=== PATIENT | male | born 1965 | race Caucasian/White ===

== ENCOUNTER 2017-02-26 10:00 | Emergency (ER) | payer MEDICAID ==
[~2017-02-26] VITALS: Ht 165.1 cm; Wt 89.0 kg
[~2017-02-26 10:00] MED LIST: ALBU8.5H5 INH; AUG875 PO; BECL8.7A INH; CROM26SP NASAL; FLUT9.9S NASAL; NASO17 NASAL; PRED20TA PO
[2017-02-26 10:11] VITALS: Ht 165.1 cm; Wt 89.0 kg
--- NOTE | 2017-02-26 11:33 | ERD ---
ER Documentation Chief Complaint Date/Time DATE: 02/26/17 TIME: 11:31 Chief Complaint cough, nasal congestion x 5 days HPI This a 52-year-old male who presents the emergency department today complaining of some nasal congestion for the past week. States he is also had some shortness of breath and difficulty breathing when he takes a deep breath. Denies any cough, fevers or chills per ROS All systems reviewed and are negative except as per history of present illness. Medications Home Meds Active Scripts Cetirizine Hcl* (Zyrtec*) 10 Mg Capsule, 10 MG PO DAILY, #14 TAB.CHEW Prov:ALEX BOX PA-C 02/26/17 Fluticasone Propionate (Flonase Allergy Relief) 9.9 Ml [place].susp, 2 SPRAY NASAL DAILY, #1 BOTTLE TO EACH NOSTRIL Prov:ALEX BOX PA-C 02/26/17 Amoxicillin/Potassium Clav (Amox-Clav 875-125 mg Tablet) 875-125 mg Tab, 1 TAB PO BID for 7 Days, #14 TAB Prov:ALEX BOX PA-C 02/26/17 Fluticasone Propionate (Flonase Allergy Relief) 9.9 Ml [place].susp, 1 SPRAY NASAL BID, #1 BOTTLE TO EACH NOSTRIL Prov:VICKIE LEE PA-C 05/30/16 Amoxicillin-Clavulanate K* (Augmentin*) 875 Mg Tab, 875 MG PO BID, #20 TAB Prov:TJ SHI PA-C 10/27/15 Prednisone* (Prednisone*) 20 Mg Tab, 40 MG PO DAILY, #8 TAB Prov:TJ SHI PA-C 10/27/15 Mometasone Furoate* (Nasonex*) 50 Mcg/[place] - 17 Gm [place].pump, 1 SPRAY NASAL DAILY, #1 BOTTLE TO EACH NOSTRIL Prov:TJ SHI PA-C 10/27/15 Cromolyn Sodium* (Nasal Allergy [place]*) 40 Mg/Ml [place].pump, 1 SPRAY NASAL TID, #1 SPR EACH NOSTRIL Prov:ANDRA NOONAN MD 06/02/15 Beclomethasone Dip* (Qvar 40*) 7.3 Gm Inha, 2 PUFF INH BID, #1 INH Prov:FARZANEH LINK 04/30/15 Albuterol Sulfate* (Albuterol Sulfate* HFA) 8.5 Gm Hfa.aer.ad, 2 PUFF INH Q4 Y for SHORTNESS OF BREATH, #1 EA Prov:FARZANEH LINK 04/30/15 Allergies Allergies: Coded Allergies: No Known Allergies (Verified Allergy, Mild, 06/02/15) PMhx/Soc History of Surgery: No Anesthesia Reaction: No Hx Neurological Disorder: No Hx Respiratory Disorders: No Hx Cardiac Disorders: No Hx Psychiatric Problems: No Hx Miscellaneous Medical Probl: No Hx Alcohol Use: No Hx Substance Use: No Hx Tobacco Use: No Physical Exam Vitals Vital Signs Date Time Temp Pulse Resp B/P Pulse Ox O2 Delivery O2 Flow Rate FiO2 02/26/17 10:11 98.0 75 18 138/75 99 Physical Exam Const: No acute distress Head: Atraumatic Eyes: Normal Conjunctiva ENT: Ears TMs normal. Nose no drainage. Throat no erythema no exudate Neck: Full range of motion..~ No meningismus. Resp: Clear to auscultation bilaterally. No absent breath sounds. No wheezing. Cardio: Regular rate and rhythm, no murmurs Skin: No petechiae or rashes Neur: Awake and alert Psych: Normal Mood and Affect Results 24 hrs DIAGNOSTIC IMAGING REPORT Patient: MAXWELL TURPIN : 1965 Age: 52 Sex: M MR #: [id number] DOS: 02/26/17 0000 Ordering MD: ALEX BOX PA-C Location: E Room/Bed: PROCEDURE: Chest x-ray CLINICAL INDICATION: Shortness of breath TECHNIQUE: Chest single view COMPARISON: 06/02/2015 FINDINGS: The heart is normal in size. The pulmonary vessels are normal in caliber. The lungs are clear. The costophrenic angles are sharp. The visualized bony thorax is unremarkable. IMPRESSION: No acute cardiopulmonary disease. RPTAT: HH .Rajinder Bonner MD, MD Date Time Electronically viewed and signed by .Rajinder Bonner MD, MD on 02/26/2017 12:01 .W/ CC: ALEX BOX PA-C Procedures/MDM Is a 52-year-old male who presents the emergency department today complaining of nasal congestion for the past week. He is also reporting shortness of breath and some difficulty breathing and pain with inspiration. Patient has been seen in the past for nasal congestion. Patient is afebrile and otherwise well-appearing however given patient's age I did obtain an EKG and chest x-ray. EKG read and interpreted by Dr. Noonan rate [address] elevation. No QT prolongation. Normal sinus rhythm with nonspecific T-wave abnormality. Low suspicion for acute NE, PE, pericarditis Chest x-ray is negative. Lungs are clear. Heart is normal in size. Low suspicion for pneumonia, PE, abscess, pleural effusion, pneumothorax. Patient is afebrile and otherwise well-appearing. He is not tachycardic. His oxygen saturation is 99%. Patient symptoms at this time most consistent with sinus congestion versus sinusitis and shortness of breath. Patient will be given a prescription for Augmentin, Flonase and Zyrtec At this time the patient is stable for discharge and outpatient management. Patient should follow up with their PCP in the next 1-2 days. They may return to the emergency department sooner for any persistent or worsening of symptoms. Patient understood and agreed with the plan. Departure Diagnosis: Primary Impression: Sinus congestion Condition: Fair ALEX BOX PA-C February 26, 2017 11:33
--- NOTE | 2017-02-26 12:01 | RADRPT ---
PROCEDURE: Chest x-ray CLINICAL INDICATION: Shortness of breath TECHNIQUE: Chest single view COMPARISON: 06/02/2015 FINDINGS: The heart is normal in size. The pulmonary vessels are normal in caliber. The lungs are clear. Th e costophrenic angles are sharp. The visualized bony thorax is unremarkable. IMPRESSION: No acute cardiopulmonary disease. RPTAT: HH .Rajinder Bonner MD, Date Time Electronically viewed and signed by .Rajinder Bonner MD, on 02/26/2017 12:01 .W/
[2017-02-26] MEDS ORDERED: AMOX1TAB10 PO (12:09)
[2017-02-26] MEDS ORDERED: FLUT9.9S NASAL (12:09)
[2017-02-26] MEDS ORDERED: CETI10CA PO (12:10)
== END 2017-02-26 12:49 | disposition home or self-care (01) ==
LOC: FTE 10:00
DX: J34.89 Other specified disorders of nose and nasal sinuses (principal); R06.02 Shortness of breath
CPT/HCPCS: 71010; 93005; Z7502

== ENCOUNTER 2017-04-23 09:31 | Emergency (ER) | payer MEDICAID ==
[~2017-04-23] VITALS: Ht 172.7 cm; Wt 89.5 kg
[~2017-04-23 09:31] MED LIST changes: +AMOX1TAB10 PO; +CETI10CA PO
[2017-04-23 09:34] VITALS: Ht 172.7 cm; Wt 89.5 kg
[2017-04-23] MEDS ORDERED: ACET500C5 PO (10:11)
[2017-04-23] MEDS ORDERED: FLUT9.9S NASAL (10:11)
[2017-04-23] MEDS ORDERED: CETI10CA PO (10:11)
--- NOTE | 2017-04-23 10:51 | RADRPT ---
PROCEDURE: XR Chest. CLINICAL INDICATION: chest pain TECHNIQUE: Single frontal view of the chest was obtained COMPARISON: 02/26/2017 FINDINGS: The heart and mediastinum are within normal limits. The lungs are clear. There is no pleural effusion or pneumothorax. RPTAT: AA IMPRESSION: No acute disease. .Juan Carlos Waggoner MD, MD Date Time Electronically viewed and signed by .Juan Carlos Waggoner MD, on 04/23/2017 10:51 .S/
--- NOTE | 2017-04-23 11:08 | ERD ---
ER Documentation Chief Complaint Date/Time DATE: 04/23/17 TIME: 11:04 Chief Complaint nasal congestion x 8 days HPI This is a 52-year-old male presenting to the emergency department complaining of nasal congestion for the past 8 days. Patient states that he has runny nose. He admits to having a sore throat. Patient admits to having chest discomfort rating it 3 out of 10 only when he takes a deep breath and since he is unable to breathe from his nose. He denies any history of heart disease or relevant medical problems. Patient denies fevers. He states that he has been using Afrin and the nasal congestion has been getting worse ROS All systems reviewed and are negative except as per history of present illness. Medications Home Meds Active Scripts Acetaminophen* (Tylophen*) 500 Mg Capsule, 1 CAP PO Q4 Y for PAIN AND OR ELEVATED TEMP, #20 CAP Prov:MICHELLE ROBERSON PA-C 04/23/17 Cetirizine Hcl* (Zyrtec*) 10 Mg Capsule, 10 MG PO DAILY, #30 TAB.CHEW Prov:MICHELLE ROBERSON PA-C 04/23/17 Fluticasone Propionate (Flonase Allergy Relief) 9.9 Ml [place].susp, 1 SPRAY NASAL BID for 28 Days, #1 BOTTLE TO EACH NOSTRIL Prov:MICHELLE ROBERSON PA-C 04/23/17 Cetirizine Hcl* (Zyrtec*) 10 Mg Capsule, 10 MG PO DAILY, #14 TAB.CHEW Prov:ALEX BOX PA-C 02/26/17 Fluticasone Propionate (Flonase Allergy Relief) 9.9 Ml [place].susp, 2 SPRAY NASAL DAILY, #1 BOTTLE TO EACH NOSTRIL Prov:ALEX BOX PA-C 02/26/17 Amoxicillin/Potassium Clav (Amox-Clav 875-125 mg Tablet) 875-125 mg Tab, 1 TAB PO BID for 7 Days, #14 TAB Prov:ALEX BOX PA-C 02/26/17 Fluticasone Propionate (Flonase Allergy Relief) 9.9 Ml [place].susp, 1 SPRAY NASAL BID, #1 BOTTLE TO EACH NOSTRIL Prov:VICKIE LEE PA-C 05/30/16 Amoxicillin-Clavulanate K* (Augmentin*) 875 Mg Tab, 875 MG PO BID, #20 TAB Prov:TJ SHI PA-C 10/27/15 Prednisone* (Prednisone*) 20 Mg Tab, 40 MG PO DAILY, #8 TAB Prov:TJ SHI PA-C 10/27/15 Mometasone Furoate* (Nasonex*) 50 Mcg/[place] - 17 Gm [place].pump, 1 SPRAY NASAL DAILY, #1 BOTTLE TO EACH NOSTRIL Prov:TJ SHI PA-C 10/27/15 Cromolyn Sodium* (Nasal Allergy [place]*) 40 Mg/Ml [place].pump, 1 SPRAY NASAL TID, #1 SPR EACH NOSTRIL Prov:ANDRA NOONAN MD 06/02/15 Beclomethasone Dip* (Qvar 40*) 7.3 Gm Inha, 2 PUFF INH BID, #1 INH Prov:FARZANEH LINK 04/30/15 Albuterol Sulfate* (Albuterol Sulfate* HFA) 8.5 Gm Hfa.aer.ad, 2 PUFF INH Q4 Y for SHORTNESS OF BREATH, #1 EA Prov:FARZANEH LINK 04/30/15 Allergies Allergies: Coded Allergies: No Known Allergies (Verified Allergy, Mild, 06/02/15) PMhx/Soc History of Surgery: No Anesthesia Reaction: No Hx Neurological Disorder: No Hx Respiratory Disorders: No Hx Cardiac Disorders: No Hx Psychiatric Problems: No Hx Miscellaneous Medical Probl: No Hx Alcohol Use: No Hx Substance Use: No Hx Tobacco Use: No Physical Exam Vitals Vital Signs Date Time Temp Pulse Resp B/P Pulse Ox O2 Delivery O2 Flow Rate FiO2 04/23/17 09:34 97.4 80 18 137/67 98 Physical Exam GENERAL: well-developed/well-nourished, in no apparent distress, non-toxic appearing HEAD: NC/AT, no swelling noted in frontal or maxillary areas EARS: bilateral tympanic membrane is intact without erythema or effusion NARES: rhinorrhea and congested THROAT: oropharynx nonerythematous without exudates, no tonsil enlargement, post nasal drip EYES: Conjunctiva normal NECK: Supple, no lymphadenopathy PULM: CTA bilaterally, no rales, rhonchi, or wheezing heard CV: Normal S1S2, RRR, good capillary refill GI: Soft, non-distended, normal bowel sounds, non-tender BACK: No midline tenderness, no masses EXT No clubbing, cyanosis, or edema NEURO: Alert and Orientated SKIN: Intact, normal turgor PSYCH: Normal mood and mentation Procedures/MDM This is a 52-year-old male presenting to the emergency department complaining of nasal congestion, allergies and chest pain for the past week. Patient describes the chest pain as mild when he takes a deep breath and since he is having difficulty breathing from his nose. I have a low suspicion for ACS, pulmonary embolism, pneumonia or other acute cardiopulmonary conditions. EKG was done in the ED did not show any evidence of STEMI. Chest x-ray did not show any evidence of infiltrates, effusion or edema. Patient has been using Afrin for this past week and his nasal congestion has been getting worse, I have discussed with him at that he likely has rebound nasal rhinitis, I discussed with him to discontinue Afrin. Patient is stable to be discharged home with a prescription for Flonase and Zyrtec. I discussed with him to follow -up with his primary care physician for further evaluation management. Discussed return the ER for any worsening signs or symptoms. Patient stable to be discharged home. He understands and agrees with this plan. I have consulted my supervising physician who also agreed that patient stable to be discharged Chest X-ray 1V Interpreted by me: Soft Tissue: No acute abnormalities Bones: No acute abnormalities Mediastinum/Cardiac Silhouette/Lungs: [No acute abnormalities] EKG: read and signed off by myself and Dr. Noonan Rate/Rhythm: [Normal Sinus Rhythm at 63 bpm] QRS, ST, T-waves: [No changes consistent w/ acute ischemia] Impression: [No evidence of ischemia or arrhythmia] Departure Diagnosis: Primary Impression: Nasal congestion Additional Impression: Chest wall tenderness Condition: Stable Patient Instructions: Chest Wall Strain, Allergic Rhinitis Additional Instructions: Visite a john leone para un EXAMEN.Regrese a estas instalaciones si no se mejora evelyn esperbamos o evelyn le dijimos. [place] toda la medicina yaquelin y evelyn se le indic. Regrese a estas instalaciones si no se mejora evelyn esperbamos o evelyn le bhavnamos. MICHELLE ROBERSON PA-C Apr 23, 2017 11:08
== END 2017-04-23 11:10 | disposition home or self-care (01) ==
LOC: FTE 10:25
DX: R09.81 Nasal congestion (principal); R20.8 Other disturbances of skin sensation; R07.9 Chest pain, unspecified
CPT/HCPCS: 71010; 93005; Z7502

== ENCOUNTER 2017-06-25 10:23 | Emergency (ER) | payer MEDICAID ==
[~2017-06-25] VITALS: Ht 152.4 cm; Wt 89.0 kg
[~2017-06-25 10:23] MED LIST changes: +ACET500C5 PO
[2017-06-25 10:28] VITALS: Ht 152.4 cm; Wt 89.0 kg
[2017-06-25] MEDS ORDERED: FLUT9.9S NASAL (12:41)
[2017-06-25] MEDS ORDERED: AZIT500T3 PO (12:41)
[2017-06-25] MEDS ORDERED: PRED20TA PO (12:41)
--- NOTE | 2017-06-25 12:47 | ERD ---
ER Documentation Chief Complaint Date/Time DATE: 06/25/17 TIME: 12:45 Chief Complaint HERE 06/25 C/O SAME NASAL CONGESTION, CHEST CONGESTION NO IMPROVENT AFTER HPI This 52-year-old male complains of nasal congestion intermittently for the last few years. He says he is only used Mucinex nasal spray. Denies fevers. Is occasionally yellow discharge. He also has intermittent dry cough. Denies chest pain, abdominal pain, additional symptoms. Denies any additional medical problems. ROS All systems reviewed and are negative except as per history of present illness. Medications Home Meds Active Scripts Prednisone* (Prednisone*) 20 Mg Tab, 40 MG PO DAILY for 5 Days, TAB Prov:BALTAZAR WEBER MD 06/25/17 Azithromycin* (Zithromax*) 500 Mg Tablet, 500 MG PO DAILY for 3 Days, TAB Prov:BALTAZAR WEBER MD 06/25/17 Fluticasone Propionate (Flonase Allergy Relief) 9.9 Ml [place].susp, 1 SPRAY NASAL DAILY for 14 Days, #1 BOTTLE TO EACH NOSTRIL Prov:BALTAZAR WEBER MD 06/25/17 Acetaminophen* (Tylophen*) 500 Mg Capsule, 1 CAP PO Q4 Y for PAIN AND OR ELEVATED TEMP, #20 CAP Prov:MICHELLE ROBERSON PA-C 04/23/17 Cetirizine Hcl* (Zyrtec*) 10 Mg Capsule, 10 MG PO DAILY, #30 TAB.CHEW Prov:MICHELLE ROBERSON PA-C 04/23/17 Fluticasone Propionate (Flonase Allergy Relief) 9.9 Ml [place].susp, 1 SPRAY NASAL BID for 28 Days, #1 BOTTLE TO EACH NOSTRIL Prov:MICHELLE ROBERSON PA-C 04/23/17 Cetirizine Hcl* (Zyrtec*) 10 Mg Capsule, 10 MG PO DAILY, #14 TAB.CHEW Prov:ALEX BOX PA-C 02/26/17 Fluticasone Propionate (Flonase Allergy Relief) 9.9 Ml [place].susp, 2 SPRAY NASAL DAILY, #1 BOTTLE TO EACH NOSTRIL Prov:ALEX BOX PA-C 02/26/17 Amoxicillin/Potassium Clav (Amox-Clav 875-125 mg Tablet) 875-125 mg Tab, 1 TAB PO BID for 7 Days, #14 TAB Prov:ALEX BOX PA-C 02/26/17 Fluticasone Propionate (Flonase Allergy Relief) 9.9 Ml [place].susp, 1 SPRAY NASAL BID, #1 BOTTLE TO EACH NOSTRIL Prov:VICKIE LEE PA-C 05/30/16 Amoxicillin-Clavulanate K* (Augmentin*) 875 Mg Tab, 875 MG PO BID, #20 TAB Prov:TJ SHI PA-C 10/27/15 Prednisone* (Prednisone*) 20 Mg Tab, 40 MG PO DAILY, #8 TAB Prov:TJ SHI PA-C 10/27/15 Mometasone Furoate* (Nasonex*) 50 Mcg/[place] - 17 Gm [place].pump, 1 SPRAY NASAL DAILY, #1 BOTTLE TO EACH NOSTRIL Prov:TJ SHI PA-C 10/27/15 Cromolyn Sodium* (Nasal Allergy [place]*) 40 Mg/Ml [place].pump, 1 SPRAY NASAL TID, #1 SPR EACH NOSTRIL Prov:ANDRA NOONAN MD 06/02/15 Beclomethasone Dip* (Qvar 40*) 7.3 Gm Inha, 2 PUFF INH BID, #1 INH Prov:FARZANEH LINK 04/30/15 Albuterol Sulfate* (Albuterol Sulfate* HFA) 8.5 Gm Hfa.aer.ad, 2 PUFF INH Q4 Y for SHORTNESS OF BREATH, #1 EA Prov:FARZANEH LINK 04/30/15 Allergies Allergies: Coded Allergies: No Known Allergies (Verified Allergy, Mild, 06/02/15) PMhx/Soc History of Surgery: No Anesthesia Reaction: No Hx Neurological Disorder: No Hx Respiratory Disorders: No Hx Cardiac Disorders: No Hx Psychiatric Problems: No Hx Miscellaneous Medical Probl: No Hx Alcohol Use: No Hx Substance Use: No Hx Tobacco Use: No Physical Exam Vitals Vital Signs Date Time Temp Pulse Resp B/P Pulse Ox O2 Delivery O2 Flow Rate FiO2 06/25/17 10:28 98.2 84 18 135/84 99 Physical Exam Const: [], [id number]. Head: Atraumatic Eyes: Normal Conjunctiva ENT: Normal External Ears, Nose and Mouth. Gums normal. 2+ nasal congestion. Slight postnasal drip. Neck: Full range of motion..~ No meningismus. Resp: Clear to auscultation bilaterally Cardio: Regular rate and rhythm, no murmurs Abd: Soft, non tender, non distended. Normal bowel sounds Skin: No petechiae or rashes Back: No midline or flank tenderness Ext: No cyanosis, or edema Neur: Awake and alert Psych: Normal Mood and Affect Procedures/MDM Presents with chronic nasal congestion. He will be treated empirically for sinusitis with a short course prednisone, Zithromax and Flonase. Patient is advised to see ENT for persistent symptoms despite treatment. Should otherwise return for fevers, vomiting, shortness breath or chest pain or additional symptoms. Current signs or symptoms do not suggest abscess, sepsis, meningitis. Notes of hypoxemia, pneumonia, acute cardiopulmonary emergencies. Departure Diagnosis: Primary Impression: Sinusitis Sinusitis location: maxillary Chronicity: acute Recurrence: not specified as recurrent Qualified Code: J01.00 - Acute maxillary sinusitis, recurrence not specified Condition: Stable Patient Instructions: Sinusitis, Abx Tx Referrals: CATRACHO GARCIA MD,MARINA RAHMAN Additional Instructions: Va al lopez doctor/ specialista para mas evaluacon SI NO AYUDA ESTA TRATAMIENTO. posiblemente necesita autorizado de lopez doctor primario para specialista. Regresa para fiebre, o mas o nueva simptomas. BALTAZAR WEBER MD Jun 25, 2017 12:47
[2017-06-25 13:01] VITALS: BP 135/77; PULSE 74; RESP 19; TEMP 98.1
== END 2017-06-25 15:14 | disposition home or self-care (01) ==
LOC: FTE 10:23
DX: J01.00 Acute maxillary sinusitis, unspecified (principal)
CPT/HCPCS: 99284

== ENCOUNTER 2017-07-19 09:25 | Inpatient (IN) | payer MEDICAID ==
[~2017-07-19] VITALS: Ht 167.6 cm; Wt 110.0 kg
[~2017-07-19 09:25] MED LIST changes: +AZIT500T3 PO
[2017-07-19 09:28] VITALS: Ht 167.6 cm; Wt 110.0 kg
[2017-07-19] MEDS ORDERED: ASPIRIN 81 MG TAB PO STA (09:49)
[2017-07-19] MEDS ORDERED: NITROGLYCERIN 2% 1 GM OINT PKT TD STA (09:49)
[2017-07-19] MEDS ORDERED: NITROGLYCERIN (SL) 0.4 MG TAB SL PRN (10:00)
--- NOTE | 2017-07-19 10:07 | RADRPT ---
PROCEDURE: Chest x-ray CLINICAL INDICATION: Chest pain TECHNIQUE: Chest single view COMPARISON: 04/23/2017 FINDINGS: The heart is normal in size. The pulmonary vessels are normal in caliber. The lungs are clear. Th e costophrenic angles are sharp. The visualized bony thorax is unremarkable. IMPRESSION: No acute cardiopulmonary disease. RPTAT: HH .Rajinder Bonner MD, Date Time Electronically viewed and signed by .Rajinder Bonner MD, MD on 07/19/2017 10:07 .W/
[2017-07-19 10:20] LABS: BASOPHILS % 0.7 % (0.0-2.0); EOSINOPHILS # 0.3 10^3/ul (0.0-0.5); EOSINOPHILS % 5.8 % (0.0-7.0); HEMATOCRIT 43.4 % (42.0-52.0); HEMOGLOBIN 15.1 g/dl (14.0-18.0); LYMPHOCYTES # 1.8 10^3/ul (0.8-2.9); LYMPHOCYTES % 32.5 % (15.0-51.0); MEAN CORPUSCULAR HEMOGLOBIN 30.1 pg (29.0-33.0); MEAN CORPUSCULAR HGB CONC 34.8 g/dl (32.0-37.0); MEAN CORPUSCULAR VOLUME 86.5 fl (82.0-101.0); MEAN PLATELET VOLUME 11.1 fl (7.4-10.4); MONOCYTE # 0.5 10^3/ul (0.3-0.9); MONOCYTES % 8.5 % (0.0-11.0); NEUTROPHIL # 2.9 10^3/ul (1.6-7.5); NEUTROPHILS % 52.3 % (39.0-77.0); PLATELET COUNT 219 10^3/UL (140-415); RED BLOOD COUNT 5.02 10^6/ul (4.70-6.10); RED CELL DISTRIBUTION WIDTH 12.4 % (11.5-14.5); WHITE BLOOD COUNT 5.5 10^3/ul (4.8-10.8)
[2017-07-19 10:44] LABS: ANION GAP 19 (8-16); BLOOD UREA NITROGEN 11 mg/dl (7-20); CARBON DIOXIDE 22 mmol/L (21-31); CHLORIDE 105 mmol/L (97-110); CREATININE 0.86 mg/dl (0.61-1.24); GLUCOSE 138 mg/dl (70-220); POTASSIUM 3.5 mmol/L (3.5-5.1); SODIUM 142 mmol/L (135-144)
[2017-07-19 11:01] LABS: TROPONIN-I < 0.012 ng/ml (0.00-0.12)
[2017-07-19] MEDS ORDERED: ACETAMINOPHEN 325 MG TAB PO PRN (12:00)
[2017-07-19] MEDS ORDERED: ONDANSETRON 4 MG INJ IV PRN ×2 (12:00→13:30)
[2017-07-19 12:30] VITALS: BP 121/76; RESP 18
--- NOTE | 2017-07-19 13:06 | ERD ---
ER Documentation Chief Complaint Chief Complaint Complains of chest pain and SOB x 1 week HPI Patient is a 52-year-old male with no medical problems who presents with chest pain and shortness of breath. He has felt this for 1 week but it was much worse today and he could not sleep last night. It is left-sided and midsternal and constant. He tried Tylenol with no help. He feels it like a pressure. Upon review of old medical records the patient has had multiple visits for various complaints but no admissions. He does not currently have a primary doctor. ROS All systems reviewed and are negative except as per history of present illness. Medications Home Meds Discontinued Scripts Prednisone* (Prednisone*) 20 Mg Tab, 40 MG PO DAILY for 5 Days, TAB Prov:BALTAZAR WEBER MD 06/25/17 Azithromycin* (Zithromax*) 500 Mg Tablet, 500 MG PO DAILY for 3 Days, TAB Prov:BALTAZAR WBEER MD 06/25/17 Fluticasone Propionate (Flonase Allergy Relief) 9.9 Ml [place].susp, 1 SPRAY NASAL DAILY for 14 Days, #1 BOTTLE TO EACH NOSTRIL Prov:BALTAZAR WEBER MD 06/25/17 Acetaminophen* (Tylophen*) 500 Mg Capsule, 1 CAP PO Q4 Y for PAIN AND OR ELEVATED TEMP, #20 CAP Prov:MICHELLE ROBERSON PA-C 04/23/17 Cetirizine Hcl* (Zyrtec*) 10 Mg Capsule, 10 MG PO DAILY, #30 TAB.CHEW Prov:MICHELLE ROBERSON PA-C 04/23/17 Fluticasone Propionate (Flonase Allergy Relief) 9.9 Ml [place].susp, 1 SPRAY NASAL BID for 28 Days, #1 BOTTLE TO EACH NOSTRIL Prov:MICHELLE ROBERSON PA-C 04/23/17 Cetirizine Hcl* (Zyrtec*) 10 Mg Capsule, 10 MG PO DAILY, #14 TAB.CHEW Prov:ALEX BOX PA-C 02/26/17 Fluticasone Propionate (Flonase Allergy Relief) 9.9 Ml [place].susp, 2 SPRAY NASAL DAILY, #1 BOTTLE TO EACH NOSTRIL Prov:ALEX BOX-C 02/26/17 Amoxicillin/Potassium Clav (Amox-Clav 875-125 mg Tablet) 875-125 mg Tab, 1 TAB PO BID for 7 Days, #14 TAB Prov:ALEX BOX PA-C 02/26/17 Fluticasone Propionate (Flonase Allergy Relief) 9.9 Ml [place].susp, 1 SPRAY NASAL BID, #1 BOTTLE TO EACH NOSTRIL Prov:VICKIE LEE PA-C 05/30/16 Amoxicillin-Clavulanate K* (Augmentin*) 875 Mg Tab, 875 MG PO BID, #20 TAB Prov:TJ SHI PA-C 10/27/15 Prednisone* (Prednisone*) 20 Mg Tab, 40 MG PO DAILY, #8 TAB Prov:TJ SHI PA-C 10/27/15 Mometasone Furoate* (Nasonex*) 50 Mcg/[place] - 17 Gm [place].pump, 1 SPRAY NASAL DAILY, #1 BOTTLE TO EACH NOSTRIL Prov:TJ SHI PA-C 10/27/15 Cromolyn Sodium* (Nasal Allergy [place]*) 40 Mg/Ml [place].pump, 1 SPRAY NASAL TID, #1 SPR EACH NOSTRIL Prov:ANDRA NOONAN MD 06/02/15 Beclomethasone Dip* (Qvar 40*) 7.3 Gm Inha, 2 PUFF INH BID, #1 INH Prov:FARZANEH LINK 04/30/15 Albuterol Sulfate* (Albuterol Sulfate* HFA) 8.5 Gm Hfa.aer.ad, 2 PUFF INH Q4 Y for SHORTNESS OF BREATH, #1 EA Prov:FARZANEH LINK 04/30/15 Allergies Allergies: Coded Allergies: No Known Allergies (Verified Allergy, Mild, 07/19/17) PMhx/Soc Medical and Surgical Hx: pt denies Medical Hx History of Surgery: No Anesthesia Reaction: No Hx Neurological Disorder: No Hx Respiratory Disorders: No Hx Cardiac Disorders: No Hx Psychiatric Problems: No Hx Miscellaneous Medical Probl: No Hx Alcohol Use: No Hx Substance Use: No Hx Tobacco Use: No Smoking Status: Never smoker FmHx Family History: No coronary disease Physical Exam Vitals Vital Signs Date Time Temp Pulse Resp B/P Pulse Ox O2 Delivery O2 Flow Rate FiO2 07/19/17 11:30 72 18 101/71 100 Room Air 07/19/17 10:01 68 18 127/86 100 Room Air 07/19/17 09:28 97.8 78 20 131/75 99 Physical Exam Const: Anxious Head: Atraumatic Eyes: Normal Conjunctiva ENT: Normal External Ears, Nose and Mouth. Neck: Full range of motion..~ No meningismus. Resp: Clear to auscultation bilaterally Cardio: Regular rate and rhythm, no murmurs Abd: Soft, non tender, non distended. Normal bowel sounds Skin: No petechiae or rashes Back: No midline or flank tenderness Ext: No cyanosis, or edema Neur: Awake and alert Psych: Normal Mood and Affect Result Diagram: 07/19/1795407/19/17954 Results 24 hrs Laboratory Tests Test 07/19/17 09:55 White Blood Count 5.510^3/ul Red Blood Count 5.0210^6/ul Hemoglobin 15.1g/dl Hematocrit 43.4% Mean Corpuscular Volume 86.5fl Mean Corpuscular Hemoglobin 30.1pg Mean Corpuscular Hemoglobin Concent 34.8g/dl Red Cell Distribution Width 12.4% Platelet Count 84824^3/UL Mean Platelet Volume 11.1fl Neutrophils % 52.3% Lymphocytes % 32.5% Monocytes % 8.5% Eosinophils % 5.8% Basophils % 0.7% Nucleated Red Blood Cells % 0.0/100WBC Neutrophils # 2.910^3/ul Lymphocytes # 1.810^3/ul Monocytes # 0.510^3/ul Eosinophils # 0.310^3/ul Basophils # 0.010^3/ul Nucleated Red Blood Cells # 0.010^3/ul Sodium Level 142mmol/L Potassium Level 3.5mmol/L Chloride Level 105mmol/L Carbon Dioxide Level 22mmol/L Anion Gap 19 Blood Urea Nitrogen 11mg/dl Creatinine 0.86mg/dl Glucose Level 138mg/dl Calcium Level 9.0mg/dl Troponin I < 0.012ng/ml Current Medications Medications (Trade) Dose Ordered Sig/Bakari Route PRN Reason Start Time Stop Time Status Last Admin Dose Admin Aspirin (Aspirin) 162 mg ONCE STAT PO 07/19/17 09:49 07/19/17 09:50 DC 07/19/17 09:54 Nitroglycerin (Nitroglycerin 2% Oint) 1 inch ONCE STAT TD 07/19/17 09:49 07/19/17 09:50 DC 07/19/17 09:54 Nitroglycerin (Nitroglycerin (Sl Tab) 0.4 Mg) 1 tab Q5M UP TO 3 DOSES PRN SL CHEST PAIN 07/19/17 10:00 Procedures/MDM EKG #1 read by me: Rate/Rhythm: Regular rate and rhythm at a normal rate Intervals: Normal Impression: Q waves in the inferior leads without ST elevations or depressions EKG #2 read by me: Rate/Rhythm: Regular rate and rhythm at a normal rate Intervals: Normal Impression: Q waves in the inferior leads without ST elevations or depressions PROCEDURE: Chest x-ray CLINICAL INDICATION: Chest pain TECHNIQUE: Chest single view COMPARISON: 04/23/2017 FINDINGS: The heart is normal in size. The pulmonary vessels are normal in caliber. The lungs are clear. The costophrenic angles are sharp. The visualized bony thorax is unremarkable. IMPRESSION: No acute cardiopulmonary disease. RPTAT: HH .Rajinder Bonner MD, MD Date Time Electronically viewed and signed by .Rajinder Bonner MD, MD on 07/19/2017 10:07 Patient is a 52-year-old male is pending. His symptoms are concerning for potential acute coronary syndrome or unstable angina. At this point I doubt pneumonia, pneumothorax, pulmonary embolism, or aortic dissection. I will give the patient aspirin nitroglycerin and the patient will need admission to a telemetry bed. The patient will be admitted to the panel team. Departure Diagnosis: Primary Impression: Chest pain Chest pain type: unspecified Qualified Code: R07.9 - Chest pain, unspecified type Condition: ANDRA Gomes MD Jul 19, 2017 13:06
[2017-07-19] MEDS: HYDROCODONE/APAP (5/325) TAB PO PRN ×2 (13:22→19:18)
[2017-07-19] MEDS ORDERED: NACL 0.9% 3 ML SYG IV SCH (13:30)
[2017-07-19 13:38] VITALS: PULSE 66
--- NOTE | 2017-07-19 14:40 | HP ---
Date/Time of Note Date/Time of Note DATE: 07/19/17 TIME: 14:36 Assessment/Plan VTE Prophylaxis VTE Prophylaxis Intervention: LMWH Lines/Catheters IV [facility]from [facility] Saline Lock Assessment/Plan Chief Complaint/Hosp Course 1. Chest pain. To rule out acute coronary syndrome. Serial troponins will be obtained. A 2D echocardiogram will be obtained. A cardiology consult will be obtained. 2. Obesity. BMI of 39.1 kg/m. A fasting lipid panel will be obtained. A hemoglobin A1c will be obtained. Plan: The patient will be admitted to inpatient telemetry floor. The patient will be started on a low-cholesterol diet. The patient will be started on DVT prophylaxis. The patient will remain a full code. Activities will be as tolerated. The rest of the patient's management will be based on the clinical course and the results of diagnostic studies. Based on the patient's clinical presentation, he most probably requires at least one midnight's stay for further management and evaluation of his clinical presentation. The case and management of this patient was fully discussed with Dr. Kumar Problems: HPI/ROS Admit Date/Time Admit Date/Time Jul 19, 2017 at 11:32 Hx of Present Illness Reason for admission: Chest pain. Consultants 1. Andrew Beaver DO, Cardiology. This is a 52-year-old male who denied any significant past medical history who came to the emergency room with chief complaint of pleuritic chest pain that has been going on for the past 1 week. The patient verbalized the chest pain as left-sided with no radiation. The pain was rated as 8/10. There was no associated nausea, vomiting, or diaphoresis. The patient has been taking [id number] Tylenol with minimal help. The patient denied any trauma to the chest wall. He denied any cough. He denied any fevers or chills. In the emergency room, the patient's 12-lead EKG showed normal sinus rhythm. The patient's chest x-ray was negative for any acute findings. The patient's initial troponins were negative. ROS Constitutional: no complaints Eyes: no complaints ENT: no complaints Respiratory: pleuritic pain Cardiovascular: chest pain Gastrointestinal: no complaints Genitourinary: no complaints Musculoskeletal: no complaints Skin: no complaints Neurologic: no complaints Endocrine: no complaints Lymphatic: no complaints Psychological: no complaints Immunologic: no complaints PMH/Family/Social Past Medical History Medical History: no pertinent history Past Surgical History Past Surgical Hx: no surgical history Family History Significant Family History: no pertinent family hx Social History Works in a restaurant business. Alcohol Use: none Smoking Status: Never smoker Drug Use: none Exam/Review of Systems Vital Signs Vitals Vital Signs Date Time Temp Pulse Resp B/P Pulse Ox O2 Delivery O2 Flow Rate FiO2 07/19/17 13:38 66 07/19/17 12:33 18 124/88 100 Room Air 07/19/17 09:28 97.8 Exam Exam General: Adequately build 52 year-old male lying in bed in no apparent distress. HEENT: Normocephalic, atraumatic. Eyes: Anicteric sclerae, conjunctivae clear. ENT: Nasal septum midline, oral mucosa moist. Neck supple, no JVD noticed. Respiratory: Bilaterally clear breath sounds. No use of accessory muscles of respiration. No adventitious breath sounds. Cardiovascular: S1, S2 heard. No murmurs or gallops. Abdomen: Soft, nontender, and nondistended. Bowel sounds positive in all 4 quadrants. Genitourinary: Deferred. Extremities: No cyanosis, no clubbing, no edema. Peripheral pulses palpable. Neurologic: Cranial nerves II through XII grossly intact. The patient is awake, alert, and oriented. Skin: Normal skin turgor. No skin rashes. Labs Result Diagram: 07/19/1795407/19/17954 Medications Medications Current Medications Ondansetron HCl (Zofran Inj) 4 mg Q6H PRN IV NAUSEA AND/OR VOMITING; Start at 13:30 Acetaminophen (Tylenol Tab) 650 mg Q6H PRN PO PAIN LEVEL 1-3 OR FEVER; Start 07/19/17 at 13:30 Acetaminophen/ Hydrocodone Bitart ([place] (5/325)) 1 tab Q6H PRN PO PAIN LEVEL 4 -6 Last administered on 07/19/17t 13:22; Admin Dose 1 TAB; Start 07/19/17 at 13:30 Enoxaparin Sodium (Lovenox) 40 mg DAILY SC ; Start 07/20/17 at 09:00 Procedures Procedures CXR IMPRESSION: No acute cardiopulmonary disease. IRAIS CASTRO NP Jul 19, 2017 14:40
--- NOTE | 2017-07-19 14:47 | CONS ---
Date/Time of Note Date/Time of Note DATE: 07/19/17 TIME: 14:44 Assessment/Plan Assessment/Plan Additional Assessment/Plan Chest pain and back pain -Patient with symptoms of chest pain which are exacerbated by inspiration and with palpation of chest wall and back. Exertion does not worsen or improve symptoms. Initial ECG with no significant ischemic abnormalities and first set of cardiac enzymes are negative. Will check serial cardiac enzymes, echocardiogram, d-dimer and if positive, would pursue further workup. Consultation Date/Type/Reason Admit Date/Time Jul 19, 2017 at 11:32 Type of Consultation: cv Reason for Consultation Chest pain Hx of Present Illness This is a 52-year-old male with no significant past medical history presents with chest pain. Symptoms have been going on for 1 week. Pain is in the mid chest, worse with palpation of the chest wall and with deep inspiration. He also complains of pain in the back as well in the left upper shoulder. Exertion or strenuous activity does not worsen or improve symptoms but deep breathing does exacerbate chest pain as well as pushing on chest wall and left shoulder. He denies any dizziness or lightheadedness, palpitations. 12 point review of systems was performed with all pertinent positives and negatives mentioned above and all else is negative Eyes: no complaints ENT: no complaints Respiratory: pleuritic pain Cardiovascular: chest pain Gastrointestinal: no complaints Genitourinary: no complaints Musculoskeletal: no complaints Skin: no complaints Neurologic: no complaints Lymphatic: no complaints Psychological: no complaints Immunologic: no complaints Past Medical History Medical History: no pertinent history Past Surgical History Past Surgical Hx: no surgical history Social History Alcohol Use: none Smoking Status: Never smoker Drug Use: none Other Social History Works in a restaurant Exam/Review of Systems Vital Signs Vitals Vital Signs Date Time Temp Pulse Resp B/P Pulse Ox O2 Delivery O2 Flow Rate FiO2 07/19/17 13:38 66 07/19/17 12:33 18 124/88 100 Room Air 07/19/17 09:28 97.8 Exam No apparent distress Constitutional: alert, oriented Head: normocephalic Respiratory: clear to auscultation, normal air movement Cardiovascular: other (S1-S2 heard), regular rate and rhythm Gastrointestinal: bowel sounds, non-tender, soft Musculoskeletal: other (Tenderness to palpation mid chest and discomfort with palpation left scapular region and near the cervical region) Extremities: other (No edema) Results Result Diagram: 07/19/17 0955 07/19/17 0955 Results 24 hrs Laboratory Tests Test 07/19/17 09:55 White Blood Count 5.5 # Red Blood Count 5.02 Hemoglobin 15.1 Hematocrit 43.4 Mean Corpuscular Volume 86.5 Mean Corpuscular Hemoglobin 30.1 Mean Corpuscular Hemoglobin Concent 34.8 Red Cell Distribution Width 12.4 Platelet Count 219 Mean Platelet Volume 11.1 #H Neutrophils % 52.3 Lymphocytes % 32.5 Monocytes % 8.5 Eosinophils % 5.8 Basophils % 0.7 Nucleated Red Blood Cells % 0.0 Neutrophils # 2.9 Lymphocytes # 1.8 Monocytes # 0.5 Eosinophils # 0.3 Basophils # 0.0 Nucleated Red Blood Cells # 0.0 Sodium Level 142 Potassium Level 3.5 Chloride Level 105 Carbon Dioxide Level 22 Anion Gap 19 H Blood Urea Nitrogen 11 Creatinine 0.86 Glucose Level 138 Calcium Level 9.0 Troponin I < 0.012 Medications Medications Current Medications Ondansetron HCl (Zofran Inj) 4 mg Q6H PRN IV NAUSEA AND/OR VOMITING; Start at 13:30 Acetaminophen (Tylenol Tab) 650 mg Q6H PRN PO PAIN LEVEL 1-3 OR FEVER; Start 07/19/17 at 13:30 Acetaminophen/ Hydrocodone Bitart ([place] (5/325)) 1 tab Q6H PRN PO PAIN LEVEL 4 -6 Last administered on 07/19/17t 13:22; Admin Dose 1 TAB; Start 07/19/17 at 13:30 Enoxaparin Sodium (Lovenox) 40 mg DAILY SC ; Start 07/20/17 at 09:00 Procedures Procedures ECG with sinus rhythm, normal QRS duration, nonspecific T-wave abnormalities Andrwe Beaver DO Jul 19, 2017 14:47
[2017-07-19 15:02] LABS: CREATINE KINASE 158 IU/L (23-200)
[2017-07-19 15:18] LABS: CK-MB 1.12 ng/ml (0.0-2.4); TROPONIN-I < 0.012 ng/ml (0.00-0.12)
[2017-07-19 16:00] VITALS: PULSE 60
[2017-07-19 17:04] VITALS: BP 122/73; RESP 18
[2017-07-19 20:19] VITALS: PULSE 55
[2017-07-19 20:27] VITALS: BP 142/92; RESP 18
[2017-07-19 23:54] LABS: CREATINE KINASE 141 IU/L (23-200)
[2017-07-20] VITALS (8 sets, daily range): BP systolic 118–134; BP diastolic 82–88; PULSE 51–56; RESP 18–20
[2017-07-20 00:08] LABS: CK-MB 1.09 ng/ml (0.0-2.4); TROPONIN-I < 0.012 ng/ml (0.00-0.12)
[2017-07-20] MEDS: ACETAMINOPHEN 325 MG TAB PO PRN ×2 (00:50→10:32)
[2017-07-20 08:16] LABS: WHITE BLOOD COUNT 7.4 10^3/ul (4.8-10.8)
[2017-07-20 08:17] LABS: BASOPHILS % 0.4 % (0.0-2.0); EOSINOPHILS # 0.4 10^3/ul (0.0-0.5); HEMATOCRIT 44.1 % (42.0-52.0); HEMOGLOBIN 14.5 g/dl (14.0-18.0); LYMPHOCYTES # 2.4 10^3/ul (0.8-2.9); LYMPHOCYTES % 31.9 % (15.0-51.0); MEAN CORPUSCULAR HEMOGLOBIN 28.7 pg (29.0-33.0); MEAN CORPUSCULAR HGB CONC 32.9 g/dl (32.0-37.0); MEAN CORPUSCULAR VOLUME 87.2 fl (82.0-101.0); MEAN PLATELET VOLUME 11.1 fl (7.4-10.4); MONOCYTE # 0.5 10^3/ul (0.3-0.9); MONOCYTES % 7.1 % (0.0-11.0); NEUTROPHIL # 4.1 10^3/ul (1.6-7.5); NEUTROPHILS % 55.3 % (39.0-77.0); PLATELET COUNT 218 10^3/UL (140-415); RED BLOOD COUNT 5.06 10^6/ul (4.70-6.10); RED CELL DISTRIBUTION WIDTH 12.6 % (11.5-14.5)
[2017-07-20 08:37] LABS: CALCIUM 9.1 mg/dl (8.4-10.2); CREATININE 0.96 mg/dl (0.61-1.24); POTASSIUM 3.8 mmol/L (3.5-5.1)
[2017-07-20 08:39] LABS: CHOL/HDL RATIO 3.8 RATIO; MAGNESIUM 2.1 mg/dl (1.7-2.5); PHOSPHORUS 4.2 mg/dl (2.5-4.9)
[2017-07-20] MEDS ORDERED: ASPIRIN (EC) 81 MG TAB PO SCH (09:00)
[2017-07-20] MEDS ORDERED: ENOXAPARIN 40 MG/0.4 ML SYG SC SCH (09:00)
--- NOTE | 2017-07-20 12:53 | PDOCDIS ---
Discharge Instructions DIAGNOSIS Discharge Diagnosis 1. Chest pain. Resolved. 2. Prediabetes. 3. Dyslipidemia. 4. Obesity. CONDITION Patient Condition: Stable HOME CARE INSTRUCTIONS: Diet Instructions: Low Fat /CholesterolSpecial Diet: Low carbohydrate FOLLOW UP/APPOINTMENTS Follow-up Plan Manny Shah MD Specialty: Internal Medicine Office Address: [address] [place], [place] [id number] Office OTHER ORDERS: Other Orders: 1. Take a low-cholesterol, low carbohydrate diet. 2. Weight reduction. 3. Follow-up with your primary care physician in 2 weeks. If you do not have a primary care physician, please call Dr. Manny Shah's office. 4. Activities as tolerated. IRAIS CASTRO NP Jul 20, 2017 12:53
--- NOTE | 2017-07-20 13:04 | DS ---
Date/Time of Note Date/Time of Note DATE: 07/20/17 TIME: 13:02 Discharge Summary Admission/Discharge Info Admit Date/Time Jul 19, 2017 at 11:32 Discharge Date/Time Discharge Diagnosis 1. Chest pain. Resolved. 2. Prediabetes. 3. Dyslipidemia. 4. Obesity. Patient Condition: Stable Consults 1. Andrew Beaver DO, Cardiology. Procedures CXR IMPRESSION: No acute cardiopulmonary disease. 2D Echo Conclusions 1. Normal left ventricular systolic function. Normal left ventricular cavity size. Mild concentric left ventricular hypertrophy. Ejection fraction is visually estimated at 65 %. Tissue Doppler/Mitral Doppler indices are consistent with impaired relaxation (Stage I diastolic dysfunction). 2. Mild mitral leaflet calcification. Mild mitral annular calcification. Trace mitral regurgitation. 3. No significant aortic stenosis or insufficiency. 4. Normal appearance of the tricuspid valve. Estimated peak PA systolic pressure 30 mmHg. There is mild tricuspid regurgitation. 5. Pulmonic valve not well visualized. There is trace pulmonic regurgitation. 6. Normal pericardium with no significant pericardial effusion. Hx of Present Illness Reason for admission: Chest pain. Consultants 1. Andrew Beaver DO, Cardiology. This is a 52-year-old male who denied any significant past medical history who came to the emergency room with chief complaint of pleuritic chest pain that has been going on for the past 1 week. The patient verbalized the chest pain as left-sided with no radiation. The pain was rated as 8/10. There was no associated nausea, vomiting, or diaphoresis. The patient has been taking [id number] Tylenol with minimal help. The patient denied any trauma to the chest wall. He denied any cough. He denied any fevers or chills. In the emergency room, the patient's 12-lead EKG showed normal sinus rhythm. The patient's chest x-ray was negative for any acute findings. The patient's initial troponins were negative. Hospital Course The patient was admitted to inpatient telemetry floor. Serial troponins were ordered. 2D echocardiogram was obtained. A cardiology consult was obtained. The patient's serial troponins remained negative. The patient's 2D echocardiogram showed preserved left ventricular ejection fraction. The patient 's chest pain was resolved over the course of his hospital stay. The patient's chest pain could have been most probably musculoskeletal in origin. Meanwhile, the patient was noticed to have prediabetes with a hemoglobin A1c of 6.5. The patient was advised on a low carbohydrate diet. The patient was also noticed to have dyslipidemia with elevated triglycerides and suboptimal total cholesterol. The patient was advised on a low-fat diet. The patient is also obese with a BMI of 39.1 kg/m. The patient was advised on weight reduction. The patient had a stable hospital course. The patient was cleared by cardiology to be discharged home. The patient denied any complaints at the time of discharge. Discharge Instructions 1. Take a low-cholesterol, low carbohydrate diet. 2. Weight reduction. 3. Follow-up with your primary care physician in 2 weeks. If you do not have a primary care physician, please call Dr. Manny Shah's office. 4. Activities as tolerated. The patient verbalized understanding of his discharge instructions. At this time I would like to thank all the consultants for seeing the patient and providing clinical recommendations The case and management of this patient was fully discussed with Dr. Kumar Home Meds Discontinued Scripts Prednisone* (Prednisone*) 20 Mg Tab, 40 MG PO DAILY for 5 Days, TAB Prov:BALTAZAR WEBER MD 06/25/17 Azithromycin* (Zithromax*) 500 Mg Tablet, 500 MG PO DAILY for 3 Days, TAB Prov:BALTAZAR WEBER MD 06/25/17 Fluticasone Propionate (Flonase Allergy Relief) 9.9 Ml [place].susp, 1 SPRAY NASAL DAILY for 14 Days, #1 BOTTLE TO EACH NOSTRIL Prov:BALTAZAR WEBER MD 06/25/17 Acetaminophen* (Tylophen*) 500 Mg Capsule, 1 CAP PO Q4 Y for PAIN AND OR ELEVATED TEMP, #20 CAP Prov:MICHELLE ROBERSON PA-C 04/23/17 Cetirizine Hcl* (Zyrtec*) 10 Mg Capsule, 10 MG PO DAILY, #30 TAB.CHEW Prov:MICHELLE ROBERSON PA-C 04/23/17 Fluticasone Propionate (Flonase Allergy Relief) 9.9 Ml [place].susp, 1 SPRAY NASAL BID for 28 Days, #1 BOTTLE TO EACH NOSTRIL Prov:MICHELLE ROBERSON PA-C 04/23/17 Cetirizine Hcl* (Zyrtec*) 10 Mg Capsule, 10 MG PO DAILY, #14 TAB.CHEW Prov:ALEX BOX PA-C 02/26/17 Fluticasone Propionate (Flonase Allergy Relief) 9.9 Ml [place].susp, 2 SPRAY NASAL DAILY, #1 BOTTLE TO EACH NOSTRIL Prov:ALEX BOX PA-C 02/26/17 Amoxicillin/Potassium Clav (Amox-Clav 875-125 mg Tablet) 875-125 mg Tab, 1 TAB PO BID for 7 Days, #14 TAB Prov:ALEX BOX PA-C 02/26/17 Fluticasone Propionate (Flonase Allergy Relief) 9.9 Ml [place].susp, 1 SPRAY NASAL BID, #1 BOTTLE TO EACH NOSTRIL Prov:VICKIE LEE PA-C 05/30/16 Amoxicillin-Clavulanate K* (Augmentin*) 875 Mg Tab, 875 MG PO BID, #20 TAB Prov:TJ SHI PA-C 10/27/15 Prednisone* (Prednisone*) 20 Mg Tab, 40 MG PO DAILY, #8 TAB Prov:TJ SHI PA-C 10/27/15 Mometasone Furoate* (Nasonex*) 50 Mcg/[place] - 17 Gm [place].pump, 1 SPRAY NASAL DAILY, #1 BOTTLE TO EACH NOSTRIL Prov:TJ SHI PA-C 10/27/15 Cromolyn Sodium* (Nasal Allergy [place]*) 40 Mg/Ml [place].pump, 1 SPRAY NASAL TID, #1 SPR EACH NOSTRIL Prov:ANDRA NOONAN MD 06/02/15 Beclomethasone Dip* (Qvar 40*) 7.3 Gm Inha, 2 PUFF INH BID, #1 INH Prov:FARZANEH LINK 04/30/15 Albuterol Sulfate* (Albuterol Sulfate* HFA) 8.5 Gm Hfa.aer.ad, 2 PUFF INH Q4 Y for SHORTNESS OF BREATH, #1 EA Prov:FARZANEH LINK 04/30/15 Follow-up Plan Manny Shah MD Specialty: Internal Medicine Office Address: [address] [place] [address] Office Primary Care Provider Care Physician No Primary Time spent on discharge: > 30 minutes Pending Labs Laboratory Tests Test 07/19/17 14:16 07/19/17 14:20 07/19/17 22:37 07/20/17 07:27 Hemoglobin A1c 6.5% (0-5.9) Thyroid Stimulating Hormone (TSH) 1.120MIU/L (0.465-4.680) Free Thyroxine 1.06ng/dl (0.64-1.79) Creatine Kinase 158IU/L (23-200) 141IU/L (23-200) Creatine Kinase Index 0.7 0.8 Creatinine Kinase MB (Mass) 1.12ng/ml (0.0-2.4) 1.09ng/ml (0.0-2.4) Troponin I < 0.012ng/ml (0.00-0.12) < 0.012ng/ml (0.00-0.12) White Blood Count 7.410^3/ul (4.8-10.8) Red Blood Count 5.0610^6/ul (4.70-6.10) Hemoglobin 14.5g/dl (14.0-18.0) Hematocrit 44.1% (42.0-52.0) Mean Corpuscular Volume 87.2fl (82.0-101.0) Mean Corpuscular Hemoglobin 28.7pg (29.0-33.0) Mean Corpuscular Hemoglobin Concent 32.9g/dl (32.0-37.0) Red Cell Distribution Width 12.6% (11.5-14.5) Platelet Count 08971^3/UL (140-415) Mean Platelet Volume 11.1fl (7.4-10.4) Neutrophils % 55.3% (39.0-77.0) Lymphocytes % 31.9% (15.0-51.0) Monocytes % 7.1% (0.0-11.0) Eosinophils % 5.0% (0.0-7.0) Basophils % 0.4% (0.0-2.0) Nucleated Red Blood Cells % 0.0/100WBC (0.0-0.0) Neutrophils # 4.110^3/ul (1.6-7.5) Lymphocytes # 2.410^3/ul (0.8-2.9) Monocytes # 0.510^3/ul (0.3-0.9) Eosinophils # 0.410^3/ul (0.0-0.5) Basophils # 0.010^3/ul (0.0-0.1) Nucleated Red Blood Cells # 0.010^3/ul (0.0-0.0) Sodium Level 140mmol/L (135-144) Potassium Level 3.8mmol/L (3.5-5.1) Chloride Level 102mmol/L (97-110) Carbon Dioxide Level 29mmol/L (21-31) Anion Gap 13 (8-16) Blood Urea Nitrogen 12mg/dl (7-20) Creatinine 0.96mg/dl (0.61-1.24) Glucose Level 97mg/dl (70-220) Calcium Level 9.1mg/dl (8.4-10.2) Phosphorus Level 4.2mg/dl (2.5-4.9) Magnesium Level 2.1mg/dl (1.7-2.5) Triglycerides Level 187mg/dl (0-149) Cholesterol Level 210mg/dl (100-200) LDL Cholesterol, Calculated 118mg/dl HDL Cholesterol 55mg/dl (28-71) Cholesterol/HDL Ratio 3.8IRAIS FREIRE NP Jul 20, 2017 13:04
--- NOTE | 2017-07-20 13:23 | PN ---
Date/Time of Note Date/Time of Note DATE: 07/20/17 TIME: 13:22 Assessment/Plan VTE Prophylaxis VTE Prophylaxis Intervention: SCD's Lines/Catheters IV Catheter Type (from Nrsg): Saline Lock Assessment/Plan Assessment/Plan Chest pain and back pain -Patient with symptoms of chest pain which are exacerbated by inspiration and with palpation of chest wall and back. Exertion does not worsen or improve symptoms. Initial ECG with no significant ischemic abnormalities and first set of cardiac enzymes are negative. -nromal trops d/c planning Subjective 24 Hr Interval Summary Free Text/Dictation the patient withno cahnge Exam/Review of Systems Vital Signs Vitals Vital Signs Date Time Temp Pulse Resp B/P Pulse Ox O2 Delivery O2 Flow Rate FiO2 07/20/17 12:03 56 07/20/17 11:38 98.5 18 121/86 97 07/20/17 00:29 Room Air Intake and Output 07/19/17 07/19/17 07/20/17 15:00 23:00 07:00 Intake Total 800 ml 500 ml Output Total 1000 ml Balance -200 ml 500 ml Results Result Diagram: 07/20/1772607/20/17726 Results 24 hrs Laboratory Tests Test 07/19/17 14:16 07/19/17 14:20 07/19/17 22:37 07/20/17 07:27 Hemoglobin A1c 6.5 H Thyroid Stimulating Hormone (TSH) 1.120 Free Thyroxine 1.06 Creatine Kinase 158 141 Creatine Kinase Index 0.7 0.8 Creatinine Kinase MB (Mass) 1.12 1.09 Troponin I < 0.012 < 0.012 White Blood Count 7.4 # Red Blood Count 5.06 Hemoglobin 14.5 Hematocrit 44.1 Mean Corpuscular Volume 87.2 Mean Corpuscular Hemoglobin 28.7 L Mean Corpuscular Hemoglobin Concent 32.9 Red Cell Distribution Width 12.6 Platelet Count 218 Mean Platelet Volume 11.1 H Neutrophils % 55.3 Lymphocytes % 31.9 Monocytes % 7.1 Eosinophils % 5.0 Basophils % 0.4 Nucleated Red Blood Cells % 0.0 Neutrophils # 4.1 Lymphocytes # 2.4 Monocytes # 0.5 Eosinophils # 0.4 Basophils # 0.0 Nucleated Red Blood Cells # 0.0 Sodium Level 140 Potassium Level 3.8 Chloride Level 102 Carbon Dioxide Level 29 Anion Gap 13 Blood Urea Nitrogen 12 Creatinine 0.96 Glucose Level 97 # Calcium Level 9.1 Phosphorus Level 4.2 Magnesium Level 2.1 Triglycerides Level 187 H Cholesterol Level 210 H LDL Cholesterol, Calculated 118 HDL Cholesterol 55 Cholesterol/HDL Ratio 3.8 Medications Medications Current Medications Ondansetron HCl (Zofran Inj) 4 mg Q6H PRN IV NAUSEA AND/OR VOMITING; Start at 13:30 Acetaminophen (Tylenol Tab) 650 mg Q6H PRN PO PAIN LEVEL 1-3 OR FEVER Last administered on 07/20/17 10:32; Admin Dose 650 MG; Start 07/19/17 at 13:30 Acetaminophen/ Hydrocodone Bitart ([place] (5/325)) 1 tab Q6H PRN PO PAIN LEVEL 4 -6 Last administered on 07/19/17 19:18; Admin Dose 1 TAB; Start 07/19/17 at 13:30 Enoxaparin Sodium (Lovenox) 40 mg DAILY SC Last administered on 07/20/17 09: 09; Admin Dose 40 MG; Start 07/20/17 at 09:00 Influenza Virus Vaccine (Fluzone) 0.5 ml ONCE ONCE IM* ; Start 07/20/17 at 15: 00; Stop 07/20/17 at 15:01 Aspirin (Halfprin) 81 mg DAILY PO Last administered on 07/20/17 09:09; Admin Dose 81 MG; Start 07/20/17 at 09:00 ERON RODRIGUEZ MD Jul 20, 2017 13:23
--- NOTE | 2017-07-20 13:29 | RADRPT ---
Echocardiogram Report Patient Name: MAXWELL TURPIN Gender: Male Date: 1965 Study Date: 19-Jul-2017 Healthcare Prof: Kamron [facility] Location: 5557-A Ref. Physician: SUSHILA MADERA Quality: Adequate Procedures: Transthoracic echocardiogram with complete 2D, M-Mode, and doppler examination. Indications: Chest Pain. 2D/M Mode Doppler Measurement Value Normal Ranges Measurement Value Normal Ranges LVIDd 2D 5.2 3.5 - 5.6 cm AV Peak Johnathan 1.2 m/sec LVIDs 2D 3.8 2.1 - 4.1 cm AV Peak PG 6.2 mmHg LVPWd 2D 1.3 0.6 - 1.1 cm LVOT Peak Johnathan 1.0 m/sec IVSd 2D 1.4 0.6 - 1.1 cm LVOT Peak PG 4.0 mmHg AoR Diam 2D 2.4 2.0 - 3.7 cm MV E Peak Johnathan 0.8 m/sec EDV 2D 127.5 cm3 MV A Peak Johnathan 0.9 m/sec ESV 2D 56.5 cm3 MV E/A 0.9 MV Decel Time 229 msec MV Decel Stevens 4 MV E/A 0.9 TR Peak Johnathan 2.6 m/sec TR Peak PG 27.0 mmHg RVSP 30.0 mmHg Findings Left Ventricle: Normal left ventricular systolic function. Normal left ventricular cavity size. Mild concentric left ventricular hypertrophy. Ejection fraction is visually estimated at 65 %. Tissue Doppler/Mitral Doppler indices are consistent with impaired relaxation (Stage I diastolic dysfunction). Right Ventricle: Normal right ventricular size. Normal right ventricular systolic function. Left Atrium: The left atrium is normal in size. Right Atrium: The right atrium is normal in size. Mitral Valve: Mild mitral leaflet calcification. Mild mitral annular calcification. Trace mitral regurgitation. Aortic Valve: No significant aortic stenosis or insufficiency. Tricuspid Valve: Normal appearance of the tricuspid valve. Estimated peak PA systolic pressure 30 mmHg. There is mild tricuspid regurgitation. Pulmonic Valve: Pulmonic valve not well visualized. There is trace pulmonic regurgitation. Pericardium: Normal pericardium with no significant pericardial effusion. Aorta: Normal aortic root. IVC: Normal size and normal respiratory collapse consistent with normal right atrial pressure. Conclusions 1.Normal left ventricular systolic function. Normal left ventricular cavity size. Mild concentric left ventricular hypertrophy. Ejection fraction is visually estimated at 65 %. Tissue Doppler/Mitral Doppler indices are consistent with impaired relaxation (Stage I diastolic dysfunction). 2.Mild mitral leaflet calcification. Mild mitral annular calcification. Trace mitral regurgitation. 3.No significant aortic stenosis or insufficiency. 4.Normal appearance of the tricuspid valve. Estimated peak PA systolic pressure 30 mmHg. There is mild tricuspid regurgitation. 5.Pulmonic valve not well visualized. There is trace pulmonic regurgitation. 6.Normal pericardium with no significant pericardial effusion. Electronically Signed By: Cristina Villegas 20-Jul-2017 13:28:23 -0700 Patient Name: MAXWELL TURPIN Study Date: 19-Jul-[id number]
[2017-07-20] MEDS ORDERED: INFLUENZA VIRUS VACCINE 0.5 ML SYG IM* ONE (15:00)
== END 2017-07-20 15:00 | disposition home or self-care (01) | DRG 313 ==
LOC: E/R 09:25 → MS4 11:32
PROVIDERS: ADMIT Internal Medicine; ATTEND Internal Medicine
DX: R07.9 Chest pain, unspecified (principal); E78.5 Hyperlipidemia, unspecified; R73.03 Prediabetes; E66.9 Obesity, unspecified; Z68.39 Body mass index [BMI] 39.0-39.9, adult
CPT/HCPCS: 36415; 71010; 80048; 80061; 82550; 82553; 83036; 83735; 84100; 84439; 84443; 84484; 85025; 90686; 93306; J1650

== ENCOUNTER 2018-01-31 14:51 | Emergency (ER) | END 2018-01-31 16:35 | disposition home or self-care (01) ==